=== PATIENT | female | born 1955 | race Caucasian/White ===

== ENCOUNTER 2021-06-21 18:26 | Inpatient (IN) | payer MEDICARE ==
[~2021-06-21] VITALS: Ht 152.4 cm; Wt 49.4 kg
[~2021-06-21 18:26] MED LIST: ADVAIR 250-501 EACH INH; ALBUTEROL2.5 MG/3 M INH; ALENDRONATE SOD70 MG PO; AMBIEN10 MG PO; ATORVASTATIN CA20 MG PO; CEFUROXIME500 MG PO; CILOSTAZOL50 MG PO; COMPACT COMPRE1 EACH MC; COZAAR50 MG PO; CYMBALTA60 MG PO; DALIRESP 500500 MCG PO; ECOTRIN81 MG PO; KLONOPIN1 MG PO; LASIX40 MG PO; LIPITOR40 MG PO; LOPRESSOR 50 MG50 MG PO; LOVAZA1 GM PO; LYRICA200 MG PO; MUCINEX600 MG PO; NAPROSYN500 MG PO; OMEPRAZOLE20 MG PO; PATADAY2.5 ML OU; PERCOCET 10-321 EACH PO; PROAIR HFA8.5 GM INH; RANITIDINE HCL150 M1 PO; SINGULAIR10 MG PO; TRELEGY ELLIPT1 EACH INH; TUDORZA PRESS400 MCG INH; VITAMIN C 500500 MG PO; ZANAFLEX4 MG PO
[2021-06-21 19:54] LABS: HEMOGLOBIN 9.7 gm/dl (12.3-15.3); RED BLOOD COUNT 3.51 M/UL (4.00-5.10); WHITE BLOOD COUNT 6.1 K/UL (4.5-11.0)
[2021-06-22 07:07] LABS: HEMOGLOBIN 10.9 gm/dl (12.3-15.3); RED BLOOD COUNT 3.85 M/UL (4.00-5.10)
[2021-06-22 07:10] LABS: WHITE BLOOD COUNT 8.8 K/UL (4.5-11.0)
[2021-06-22] MEDS ORDERED: METOPROLOL TART25 MG PO (11:31)
[2021-06-22] MEDS ORDERED: LEVALBUTER1.25 MG/3 INH (11:33)
[2021-06-22] MEDS ORDERED: ONDANSETRON HCL4 MG PO (11:33)
[2021-06-22] MEDS ORDERED: POTASSIUM CHLO20 ME2 PO (11:33)
[2021-06-22] MEDS ORDERED: TIZANIDINE HCL4 MG PO (11:35)
[2021-06-22] MEDS ORDERED: FORTEO INJ (11:35)
[2021-06-22] MEDS ORDERED: MUCINEX600 MG PO (11:36)
[2021-06-22] MEDS ORDERED: LORATADINE-D 11 EACH PO (11:36)
[2021-06-22] MEDS ORDERED: VOLTAREN ARTHRI20 GM TOP (11:37)
[2021-06-22] MEDS ORDERED: PROZAC20 MG PO (11:37)
[2021-06-22] MEDS ORDERED: FLUTICASONE-SA1 EAC4 INH (11:38)
[2021-06-22] MEDS ORDERED: FLONASE 0.05% N16 GM (11:39)
[2021-06-23 02:06] LABS: HEMOGLOBIN 9.3 gm/dl (12.3-15.3)
[2021-06-23 02:16] LABS: RED BLOOD COUNT 3.31 M/UL (4.00-5.10); WHITE BLOOD COUNT 20.3 K/UL (4.5-11.0)
[2021-06-24 05:42] LABS: HEMOGLOBIN 9.6 gm/dl (12.3-15.3); RED BLOOD COUNT 3.46 M/UL (4.00-5.10)
[2021-06-24 05:43] LABS: WHITE BLOOD COUNT 29.7 K/UL (4.5-11.0)
--- NOTE | 2021-06-25 01:04 | NUR ---
1914 SHIFT ASSESSMENT PATIENTS O2 DROPPED TO 87%. PATIENT WAS NON RESPONSIVE. ATTEMPTED TO AROUSE THE PATIENT WITH STERNAL RUB THERE WAS NO RESPONSE. PT VITALS, HR 135, BP 103/86, RR 23, O2 SAT 87%. DR ENCISO WAS CALLED AND NOTIFIED OF THE PATIENTS CONDITION AT 1924. DR ENCISO ORDERED TO CALL ER AND HAVE A DOCTOR COME INTUBATE THE PATIENT. AN [employer] WAS CALLED AT THIS TIME. THE PATIENTS LEVOPHED DRIP WAS INITIATED AT 11 MCG. AT 1929DR LÓPEZ ARRIVED TO INTUBATE THE PATIENT. AT 1932 12MG OF ETOMIDATE AND 120 MG OF SUCCINATE WERE GIVEN. THE INTUBATION TUBE WAS ADVANCED AND SECURED AT 20 AT THE LIP. HR WAS 151. AT 1935 DR LÓPEZ ORDERED A VERSED DRIP. AT 1938 AN ABG WAS ORDERED AND LEVOPHED WAS INCREASED TO 20 MCG. A 500 ML BOLUS OF NORMAL SALINE WAS STARTED. AT 1941 THE PATIENTS BP WAS 67/47. THE LEVOPHED WAS INCREASED TO 30 MCG. AT 1944 THE PATIENTS HR WAS 129 AND BP WAS 87/69. THE PATIENT WAS MOVED TO ICU.
--- NOTE | 2021-06-25 02:00 | NUR ---
DAUGHTERS HAD BEEN ALLOWED BY HEAD OF ACQUISITIONS. ALL QUESTIONS AND CONCERNS ADDRESSED. PATIENT REMAINS FULL CODE AT THIS TIME.
[2021-06-25 05:02] LABS: HEMOGLOBIN 8.4 gm/dl (12.3-15.3)
[2021-06-25 05:28] LABS: RED BLOOD COUNT 3.04 M/UL (4.00-5.10); WHITE BLOOD COUNT 10.3 K/UL (4.5-11.0)
--- NOTE | 2021-06-25 06:10 | NUR ---
RECEIVED CALL FROM PT'S SISTER. UPDATE GIVEN ON PATIENT'S DECLINE. ADVISED TO COME TO HOSPITAL.
--- NOTE | 2021-06-25 06:51 | NUR ---
I CALLED PT'S DAUGHTER SKY. NO MESSAGE HAD BEEN RELAYED BY AUNT PREVIOUSLY INSTRUCTED. AGAIN, FAMILY ADVISED TO COME TO HOSPITAL D/T PT DECLINE.
== END 2021-06-25 11:45 | disposition expired | DRG 871 ==
LOC: ER1 18:26 → PROG CARE 21:18 → CDU 21:18 → PROG CARE 06-22 03:09 → CCU 06-24 20:17
PROVIDERS: Internal Medicine; Student in an Organized Health Care Education/Training Program; ADMIT Internal Medicine
PROC: 5A09457 Assistance with Respiratory Ventilation, 24-96 Consecutive Hours, Continuous Positive Airway Pressure (ICD-10-PCS; 2021-06-21)
PROC: 3E0333Z Introduction of Anti-inflammatory into Peripheral Vein, Percutaneous Approach (ICD-10-PCS; 2021-06-21)
PROC: 3E043XZ Introduction of Vasopressor into Central Vein, Percutaneous Approach (ICD-10-PCS; principal; 2021-06-22)
PROC: 8E0ZXY6 Isolation (ICD-10-PCS; 2021-06-22)
PROC: 5A1935Z Respiratory Ventilation, Less than 24 Consecutive Hours (ICD-10-PCS; 2021-06-24)
PROC: 0BH17EZ Insertion of Endotracheal Airway into Trachea, Via Natural or Artificial Opening (ICD-10-PCS; 2021-06-24)
PROC: 0BH17EZ Insertion of Endotracheal Airway into Trachea, Via Natural or Artificial Opening (ICD-10-PCS; 2021-06-24)
PROC: 06JY3ZZ Inspection of Lower Vein, Percutaneous Approach (ICD-10-PCS; 2021-06-25)
DX: A41.89 Other specified sepsis (principal); U07.1 COVID-19; R65.21 Severe sepsis with septic shock; J96.21 Acute and chronic respiratory failure with hypoxia; J12.82 Pneumonia due to coronavirus disease 2019; J96.22 Acute and chronic respiratory failure with hypercapnia; R57.1 Hypovolemic shock; N17.9 Acute kidney failure, unspecified; A08.39 Other viral enteritis; J44.1 Chronic obstructive pulmonary disease with (acute) exacerbation; I50.42 Chronic combined systolic (congestive) and diastolic (congestive) heart failure; E87.2 Acidosis; I11.0 Hypertensive heart disease with heart failure; F41.9 Anxiety disorder, unspecified; M81.0 Age-related osteoporosis without current pathological fracture; G89.4 Chronic pain syndrome; E87.5 Hyperkalemia; F17.210 Nicotine dependence, cigarettes, uncomplicated; J44.9 Chronic obstructive pulmonary disease, unspecified; Z99.81 Dependence on supplemental oxygen; I25.2 Old myocardial infarction; Z82.49 Family history of ischemic heart disease and other diseases of the circulatory system; Z88.1 Allergy status to other antibiotic agents
CPT/HCPCS: 31500; 36415; 36556; 36600; 51701; 70450; 71045; 80048; 80053; 81001; 82550; 82553; 82803; 82962; 84132; 84484; 85025; 93005; 94002; 94003; 94640; 94660; 94664; 94760; 96374; 96375; 99285; J0171; J0696; J1100; J1644; J1940; J2060; J2250; J2370; J2920; J3370; J7030; J7070; U0002